=== PATIENT | female | born 1950 ===

== ENCOUNTER 2020-11-05 06:00 | Outpatient (RCR) | payer MEDICARE, SELFPAY | END 2020-12-01 23:59 | disposition home or self-care (01) | LOC: GPT 06:00 | PROVIDERS: Referring Provider Orthopaedic Surgery; Visit Provider Orthopaedic Surgery | DX: Z47.1 Aftercare following joint replacement surgery (principal); Z96.651 Presence of right artificial knee joint | CPT/HCPCS: 97032; 97110; 97112; 97116; 97140; 97161; 97164; 97530 ==

== ENCOUNTER 2020-12-02 06:00 | Outpatient (RCR) | payer MEDICARE, SELFPAY | END 2021-01-01 23:59 | disposition home or self-care (01) | LOC: GPT 06:00 | PROVIDERS: Referring Provider Orthopaedic Surgery; Visit Provider Orthopaedic Surgery | DX: Z47.1 Aftercare following joint replacement surgery (principal); Z96.651 Presence of right artificial knee joint | CPT/HCPCS: 97032; 97110; 97112; 97116; 97140; 97164; 97530 ==

== ENCOUNTER 2021-01-02 06:00 | Outpatient (RCR) | payer MEDICARE, SELFPAY | END 2021-01-31 23:59 | disposition home or self-care (01) | LOC: GPT 06:00 | PROVIDERS: Referring Provider Orthopaedic Surgery; Visit Provider Orthopaedic Surgery | DX: Z47.1 Aftercare following joint replacement surgery (principal); Z96.651 Presence of right artificial knee joint | CPT/HCPCS: 97110; 97112; 97116; 97140; 97164; 97530 ==

== ENCOUNTER 2022-09-03 06:00 | Outpatient (RCR) | payer MEDICARE, SELFPAY | END 2022-10-03 23:59 | disposition home or self-care (01) | LOC: GPT 06:00 | PROVIDERS: Visit Provider Orthopaedic Surgery | DX: Z47.1 Aftercare following joint replacement surgery (principal); Z96.651 Presence of right artificial knee joint | CPT/HCPCS: 97110; 97140; 97161; 97530 ==

== ENCOUNTER 2022-10-04 06:00 | Outpatient (RCR) | payer MEDICARE, SELFPAY | END 2022-11-03 23:59 | disposition home or self-care (01) | LOC: GPT 06:00 | PROVIDERS: Visit Provider Orthopaedic Surgery | DX: Z47.1 Aftercare following joint replacement surgery (principal); Z96.651 Presence of right artificial knee joint | CPT/HCPCS: 97110; 97140; 97530 ==